=== PATIENT | female | born 1980 | race Caucasian/White ===

== ENCOUNTER 2016-11-13 18:26 | Emergency (ER) | payer OTHER ==
[2016-11-13 18:34] VITALS: BP 133/78; PULSE 77; TEMP 98.6; BMI 29.7
[2016-11-13] MEDS ORDERED: TOBRAMYCIN 0.3% OPHTH SOLN 5 ML BOTTLE ONE (19:15)
[2016-11-13] MEDS ORDERED: morphine CARPU-JECT 4 MG/1 ML DISP.SYRIN IVPUSH ONE (19:16)
[2016-11-13] MEDS ORDERED: TOBRAMYCIN 0.3% OPHTH SOLN 5 ML BOTTLE OD ONE (19:17)
--- NOTE | 2016-11-13 19:20 | PDOC ---
History of Present Illness - General Chief Complaint: Cold Symptoms Stated Complaint: PAIN, ACUTE Time Seen by Provider: 11/13/16 18:51 History Source: Patient Exam Limitations: No Limitations - History of Present Illness Initial Comments: 11/13/16 19:16 Patient is here with 2 daughters, recent return from [facility] where all of family was sick with URIs and strep throat. Mother states fevers have continued all week has been using ibuprofen and Tylenol but recur. Feels may have recurrent strep throat. Complains of right eye redness with discharge, was crusted shut this morning with thick yellow drainage. Daughter is ill with same 11/14/16 10:53 Timing/Duration: reports: changing over time, getting worse Severity: reports: mild, moderate Associated Symptoms: reports: facial pain, fever/chills, nasal drainage Past History - Travel Traveled outside of the country in the last 30 days: No Close contact w/someone who was outside of country & ill: No - Past Medical History Allergies/Adverse Reactions: Allergies Allergy/AdvReac Type Severity Reaction Status Date / Time No Known Allergies Allergy Verified 11/13/16 18:27 Home Medications: Ambulatory Orders Azithromycin Suspension [Zithromax 200Mg/5Ml Suspension -] 400 mg PO ASDIR #30 ml 11/13/16 Tobramycin 0.3% Ophth Soln [Tobrex Ophthalmic Solution -] 2 drop OS QID #1 drops 11/13/16 Other medical history: NONE - Psycho/Social/Smoking Cessation Hx Anxiety: No Suicidal Ideation: No Smoking History: Never smoked Have you smoked in the past 12 months: Yes Number of Cigarettes Smoked Daily: 4 Information on smoking cessation initiated: Yes 'Breaking Loose' booklet given: 11/13/16 Hx Alcohol Use: No Drug/Substance Use Hx: No Substance Use Type: None Review of Systems - Review of Systems Able to Perform ROS?: Yes Is the patient limited Slovak proficient: Yes Constitutional: Yes: Symptoms Reported, See HPI, Chills, Fever, Loss of Appetite , Malaise HEENTM: Yes: Symptoms Reported, See HPI, Nose Congestion, Throat Swelling, Mouth Swelling Respiratory: Yes: See HPI, Cough Musculoskeletal: Yes: Symptoms Reported Integumentary: Yes: Symptoms Reported, See HPI All Other Systems: Reviewed and Negative *Physical Exam - Vital Signs Last Vital Signs Temp Pulse Resp BP Pulse Ox 98.6 F 77 18 133/78 100 11/13/16 18:31 11/13/16 18:31 11/13/16 18:31 11/13/16 18:31 11/13/16 18:31 - Physical Exam General Appearance: Yes: Nourished, Appropriately Dressed, Apparent Distress, Mild Distress HEENT: positive: STEF, Normal ENT Inspection, TMs Normal, Tonsillar Erythema, Nasal Congestion, Rhinorrhea, TM Erythema, Other (erythematous right conjunctiva with some faint yellowish thick discharge. Vision within normal limits). negative: Pharynx Normal Neck: positive: Tender, Trachea midline, Supple, Lymphadenopathy (R), Lymphadenopathy (L) Respiratory/Chest: positive: Chest Tender, Lungs Clear, Normal Breath Sounds Cardiovascular: positive: Regular Rate Extremity: positive: Normal Capillary Refill, Normal Inspection Integumentary: positive: Normal Color, Dry, Warm Neurologic: positive: superintendent pressure II-XII NML intact, Fully Oriented, Alert, Normal Mood/ Affect, Normal Response, Motor Strength 5/5 Progress Note - Progress Note Progress Note: Respiratory infection, probable strep pharyngitis, we'll treat with Zithromax as all of family is ill with same and patient was exposed to family [place] with same. *DC/Admit/Observation/Transfer Diagnosis at time of Disposition: Pharyngitis, acute Qualifiers: Pharyngitis/tonsillitis etiology: unspecified etiology Qualified Code(s): J02.9 - Acute pharyngitis, unspecified Conjunctivitis Qualifiers: Conjunctivitis type: acute Acute conjunctivitis type: unspecified Laterality: right Qualified Code(s): H10.31 - Unspecified acute conjunctivitis, right eye - Discharge Dispostion Disposition: HOME Condition at time of disposition: Stable Admit: No - Prescriptions Prescriptions: Tobramycin 0.3% Ophth Soln [Tobrex Ophthalmic Solution -] 2 drop OS QID #1 drops Azithromycin Suspension [Zithromax 200Mg/5Ml Suspension -] 400 mg PO ASDIR #30 ml - Referrals Referrals: STAFF,NOT ON [Primary Care Provider] - - Patient Instructions Printed Discharge Instructions: DI for Viral Upper Respiratory Infection -- Adult Additional Instructions: Rest, drink lots of fluids: Teas, water, soups Eat cold things: Ice cream, ice pops, ice chips Saltwater gargles Steamy showers/seem to face break up mucus Avoid contact with others until fevers and pain resolved Lots of handwashing and good hygiene, this is contagious Azithromycin as directed Tylenol or Motrin for fever and pain Followup with private physician in one to 2 days as needed if not improving Return to emergency department for worsened symptoms, fevers, dehydration Rest, avoid rubbing eyes Wash hands frequently as this is very contagious Wash hands, use eye drops as directed, wash hands after use Do not share eyedrops with other person to may become infected as this will infect them Avoid contact with others until redness and discharge is gone from eyes. Followup with ophthalmology or private physician as needed Tobramyosin 2 drops in affected eye 4 times a day for 5 days
== END 2016-11-13 19:23 | disposition home or self-care (01) ==
LOC: JERFT 18:26
PROC: 3E033NZ Introduction of Analgesics, Hypnotics, Sedatives into Peripheral Vein, Percutaneous Approach (ICD-10-PCS; principal; 2016-11-13)
DX: J02.9 Acute pharyngitis, unspecified (principal); H10.31 Unspecified acute conjunctivitis, right eye
CPT/HCPCS: 99281-25

== ENCOUNTER 2018-05-27 08:39 | Emergency (ER) | payer OTHER ==
[2018-05-27 08:53] VITALS: BP 120/83; PULSE 85; TEMP 98; BMI 27.3
[2018-05-27] MEDS ORDERED: DEXAMETHASONE LIQUID 0.5 MG/5 ML 240 ML BULK BOTTLE PO ONE (09:16)
[2018-05-27] MEDS ORDERED: DEXAMETHASONE SOD PHOSPHATE 10 MG/1 ML VIAL ONE (09:24)
--- NOTE | 2018-05-27 09:24 | PDOC ---
History of Present Illness - General Chief Complaint: Sore Throat Stated Complaint: FEVER/SORE THROAT Time Seen by Provider: 05/27/18 09:02 History Source: Patient Exam Limitations: Clinical Condition - History of Present Illness Initial Comments: 05/27/18 09:17 Patient with no significant past medical history present with complaint of sore throat, fever and painful to swallow since last night. Patient reported having fever 101.3F overnight. Patient reported has been an children home with positive strep. Denies vomiting, body aches, nausea, abdominal pain. Patient reported taking Motrin 4 hours ago for fever. Timing/Duration: 24 hours Past History - Past Medical History Allergies/Adverse Reactions: Allergies Allergy/AdvReac Type Severity Reaction Status Date / Time No Known Allergies Allergy Verified 05/27/18 08:50 Home Medications: Ambulatory Orders Amoxicillin/Potassium Clav [Augmentin ES Suspension] 7.5 ml PO BID 7 Days #105 ml 05/27/18 COPD: No - Suicide/Smoking/Psychosocial Hx Smoking History: Never smoked Have you smoked in the past 12 months: Yes Number of Cigarettes Smoked Daily: 4 'Breaking Loose' booklet given: 11/13/16 Hx Alcohol Use: No Drug/Substance Use Hx: No Substance Use Type: None Review of Systems - Review of Systems Able to Perform ROS?: Yes Is the patient limited Khmer proficient: No Constitutional: Yes: Chills, Fever. No: Malaise, Weakness HEENTM: Yes: Symptoms Reported, See HPI, Nose Congestion, Throat Pain, Difficulty Swallowing. No: Eye Pain, Blurred Vision, Tearing, Recent change in vision, Double Vision, Cataracts, Ear Pain, Ocular Prothesis, Ear Discharge, Nose Pain, Tinnitus, Nose Bleeding, Hearing Loss, Throat Swelling, Mouth Pain, Dental Problems, Mouth Swelling, Other Respiratory: No: Symptoms reported, See HPI, Cough, Orthopnea, Shortness of Breath, SOB with Exertion, SOB at Rest, Stridor, Wheezing, Productive cough, Hemoptysis, Other Cardiac (ROS): No: Symptoms Reported, See HPI, Chest Pain, Edema, Irregular Heart Rate, Lightheadedness, Palpitations, Syncope, Chest Tightness, Other ABD/GI: No: Constipated, Diarrhea, Nausea, Poor Appetite, Vomiting, Indigestion , Abdominal cramping All Other Systems: Reviewed and Negative *Physical Exam - Vital Signs Last Vital Signs Temp Pulse Resp BP Pulse Ox 98 F 85 18 120/83 99 05/27/18 08:52 05/27/18 08:52 05/27/18 08:52 05/27/18 08:52 05/27/18 08:52 - Physical Exam Comments: 05/27/18 09:19 GENERAL: Well developed, well nourished. Awake and alert. No acute distress. HEENT: Mild pharyngeal erythema. Normocephalic, atraumatic. PERRLA, EOMI. No conjunctival pallor. Sclera are non-icteric. Moist mucous membranes. NECK: Supple. Full ROM. CARDIOVASCULAR: Regular rate and rhythm. No murmurs, rubs, or gallops. Distal pulses are 2+ and symmetric. PULMONARY: No evidence of respiratory distress. Lungs clear to auscultation bilaterally. No wheezing, rales or rhonchi. ABDOMINAL: Soft. Non-tender. Non-distended. No rebound or guarding. No organomegaly. Normoactive bowel sounds. MUSCULOSKELETAL Normal range of motion at all joints. SKIN: Warm and dry. Normal capillary refill. No rashes. No jaundice. NEUROLOGICAL: Alert, awake, appropriate. Gait is normal without ataxia. PSYCHIATRIC: Cooperative. Good eye contact. Appropriate mood General Appearance: Yes: Nourished, Appropriately Dressed. No: Apparent Distress Moderate Sedation - Procedure Monitoring Vital Signs: Procedure Monitoring Vital Signs Temperature 98 F 05/27/18 08:52 Pulse Rate 85 05/27/18 08:52 Respiratory Rate 18 05/27/18 08:52 Blood Pressure 120/83 05/27/18 08:52 O2 Sat by Pulse Oximetry (%) 99 05/27/18 08:52 Medical Decision Making - Medical Decision Making 05/27/18 09:20 Patient with no significant past medical history present with complaint of 24- hour history of sore throat, painful swallowing and fever. Patient with complaint of sick contacts with family members with positive strep. Exam significant for mild pharyngeal erythema otherwise normal exam. Symptoms likely strep pharyngitis versus viral pharyngitis. Rapid strep ordered to rule out strep pharyngitis. Decadron 10 mg by mouth ordered for throat pain. 05/27/18 09:41 Rapid strep negative. However patient was to be treated for strep pharyngitis given exposure with family with positive strep. *DC/Admit/Observation/Transfer Diagnosis at time of Disposition: Pharyngitis, acute - Discharge Dispostion Disposition: HOME Condition at time of disposition: Stable Decision to Admit order: No - Prescriptions Prescriptions: Amoxicillin/Potassium Clav [Augmentin ES Suspension] 7.5 ml PO BID 7 Days #105 ml - Referrals Referrals: Axel Glover MD [Staff Physician] - - Patient Instructions Printed Discharge Instructions: Throat Culture Additional Instructions: Take medication as prescribed. Increase fluid intake. Take Tylenol alternating with Motrin as needed for fever. Follow-up referred ENT if symptoms persist for more than 5 days. - Post Discharge Activity Forms/Work/School Notes: Back to Work
== END 2018-05-27 10:15 | disposition home or self-care (01) ==
LOC: JERFT 08:39
DX: J02.9 Acute pharyngitis, unspecified (principal)
CPT/HCPCS: 87070; 87880; 99281-25